=== PATIENT | female | born 1970 | race Caucasian/White ===

== ENCOUNTER 2017-08-08 20:55 | Emergency (ER) | payer SELFPAY ==
[~2017-08-08] VITALS: Ht 170.2 cm; Wt 81.0 kg
[~2017-08-08 20:55] MED LIST: AMOXICILLIN500 MG OR; AMOXIL500 MG OR; CORTISPORIN OTI10 ML OT; ERYTHROMYCIN BAS1 GM OS; LORTAB 5 OR; LORTAB 7.5 OR; MEDDOSEPAK OR; MORPHINE SUL30 M3 PO; NAPROSYN500 MG OR; NAPROSYN500 MG PO; NO HOME MEDS; NO MEDS; OXYCODONE HCL15 MG PO; ULTRAM50 MG OR; VALIUM5 MG PO; XANAX0.25 MG OR; ZOVIRAX5 % EX
[2017-08-08 23:45] VITALS: BP 116/84
== END 2017-08-08 23:45 | disposition home or self-care (01) | DRG 605 ==
LOC: ED 20:55
DX: S60.011A Contusion of right thumb without damage to nail, initial encounter (principal); W01.198A Fall on same level from slipping, tripping and stumbling with subsequent striking against other object, initial encounter; Y93.89 Activity, other specified; Y92.512 Supermarket, store or market as the place of occurrence of the external cause

== ENCOUNTER 2021-07-09 02:31 | Emergency (ER) | payer SELFPAY ==
[~2021-07-09] VITALS: Ht 170.2 cm; Wt 64.0 kg
[2021-07-09 03:56] VITALS: BP 114/70
== END 2021-07-09 04:02 | disposition home or self-care (01) | DRG 607 ==
LOC: ED 02:31
DX: D17.1 Benign lipomatous neoplasm of skin and subcutaneous tissue of trunk (principal); F17.200 Nicotine dependence, unspecified, uncomplicated

== ENCOUNTER 2021-10-31 20:37 | Emergency (ER) | payer MEDICAID ==
[~2021-10-31] VITALS: Ht 170.2 cm; Wt 68.0 kg
[2021-10-31 22:08] LABS: HEMATOCRIT 40.7 % (37.0-47.0); MEAN CORPUSCULAR HGB 30.2 pG CALC (26.0-32.0); MEAN CORPUSCULAR HGB CONC 31.9 g/dL CAL (32.0-36.0); NEUT# 0.96 thou/uL (2.00-7.15); RED BLOOD COUNT 4.3 mill/uL (4.20-5.60); RED CELL DISTRI WIDTH 12.3 % (11.5-15.5)
[2021-10-31 22:15] LABS: MEAN CELL VOLUME 94.7 fL CALC (80.0-100.0)
[2021-10-31 22:47] VITALS: BP 128/77
== END 2021-10-31 23:00 | disposition home or self-care (01) ==
LOC: ED 20:37
PROVIDERS: Family Medicine
DX: U07.1 COVID-19 (principal); F17.210 Nicotine dependence, cigarettes, uncomplicated